=== PATIENT | female | born 1965 | race Caucasian/White ===

== ENCOUNTER 2017-02-20 08:21 | Inpatient (IN) | payer MEDICAID, OTHER ==
[~2017-02-20] VITALS: Ht 157.5 cm; Wt 62.1 kg
[~2017-02-20 08:21] MED LIST: DIVA500T69 PO; RISP3TAB44 PO; SERT50TA12 PO
[2017-02-20] MEDS ORDERED: PALI39DI IM (08:29)
[2017-02-20 09:06] LABS: BASOPHILS # (AUTO) 0.09 K/uL (0.00-0.20); BASOPHILS % (AUTO) 1.4 % (0.0-2.0); EOSINOPHILS # (AUTO) 0.12 K/uL (0.00-0.70); HEMATOCRIT 42.4 % (36-46); HEMOGLOBIN 14.7 g/dL (12.0-16.0); LYMPHOCYTES # (AUTO) 1.7 K/uL (1.0-4.8); LYMPHOCYTES % (AUTO) 28.1 % (22.0-44.0); MEAN CORPUSCULAR HEMOGLOBIN 32.3 pg (26.0-34.0); MEAN CORPUSCULAR HGB CONC 34.6 G/dL (31.0-37.0); MEAN CORPUSCULAR VOLUME 94 fL (80-100); MONOCYTES # (AUTO) 0.3 K/uL (0.1-1.0); MONOCYTES % (AUTO) 4.2 % (2.0-9.0); NEUTROPHILS # (AUTO) 3.9 K/uL (1.8-7.7); NEUTROPHILS % (AUTO) 64.3 % (40.0-70.0); RED BLOOD CELL COUNT(AUTO) 4.53 MIL/uL (4.00-5.20); WHITE BLOOD COUNT (AUTO) 6.1 K/uL (4.5-11.0)
[2017-02-20] MEDS ORDERED: DiphenhydrAMINE HCL 50 MG/ML VIAL IM ONE (09:30)
[2017-02-20] MEDS ORDERED: HALOPERIDOL LACTATE 5 MG/ML VIAL IM ONE (09:30)
[2017-02-20] MEDS ORDERED: LORazepam 2 MG/ML VIAL IM ONE (09:30)
[2017-02-20 09:55] LABS: PLATELET COUNT (AUTO) 227 K/uL (150-450)
[2017-02-20] MEDS ORDERED: ZOLPIDEM TARTRATE 10 MG TABLET PO PRN (10:15)
[2017-02-20] MEDS ORDERED: FluPHENAZine HCL 5 MG TABLET PO PRN (10:15)
[2017-02-20] MEDS ORDERED: SERT100T12 PO (10:46)
[2017-02-20 10:58] LABS: ANION GAP 9 mmol/L (8-16); CALCIUM, TOTAL 9.1 mg/dL (8.8-10.5); CARBON DIOXIDE 28 mmol/L (22-29); CHLORIDE 102 mmol/L (98-107); CREATININE 0.73 mg/dL (0.60-1.30); GLOMERULAR FILTR. RATE CALC > 60 mL/min (>60); POTASSIUM 3.9 mmol/L (3.5-5.1); SODIUM SERUM 139 mmol/L (136-145); UREA NITROGEN, BLOOD 11 mg/dL (7-18)
[2017-02-20 11:03] LABS: ALANINE AMINOTRANSFERASE 16 U/L (12-78); ALBUMIN 3.8 g/dL (3.4-5.0); ASPARTATE AMINOTRANSFERASE 21 U/L (15-37); BILIRUBIN,TOTAL 0.2 mg/dL (0.1-1.0)
[2017-02-20 16:12] VITALS: BP 146/94
[2017-02-20 16:31] LABS: GLUCOSE,POINT OF CARE 219 MG/DL (70-110)
[2017-02-20] MEDS: CloNIDine HCL 0.1 MG TABLET PO SCH (16:41)
[2017-02-20] MEDS: TRIHEXYPHENIDYL HCL 2 MG TABLET PO SCH (16:41)
[2017-02-20] MEDS ORDERED: INFLUENZA VIRUS VACCINE QVS 2017-18 (3YR+)/PF 60 MCG/0.5 ML SYRINGE IM ONE (16:45)
[2017-02-20] MEDS ORDERED: GLUCAGON,HUMAN RECOMBINANT 1 MG VIAL IM PRN (16:45)
[2017-02-20 16:47] VITALS: BP 146/94
[2017-02-20] MEDS: INSULIN ASPART 100 UNITS/ML SQ PRN (16:49)
[2017-02-20] MEDS: FluPHENAZine HCL 10 MG TABLET PO SCH (20:25)
[2017-02-21 06:53] LABS: GLUCOSE COMMENT 1 Received Meds; GLUCOSE,POINT OF CARE 147 MG/DL (70-110)
[2017-02-21] MEDS: INSULIN ASPART 100 UNITS/ML SQ PRN ×2 (06:53→16:35)
[2017-02-21] MEDS: LORazepam 2 MG TABLET PO PRN (06:55)
[2017-02-21 06:58] VITALS: BP 138/95
[2017-02-21] MEDS: NICOTINE 21 MG/24 HOUR PATCH TD SCH (09:17)
[2017-02-21] MEDS: SERTRALINE HCL 50 MG TABLET PO SCH (09:18)
[2017-02-21] MEDS: CloNIDine HCL 0.1 MG TABLET PO SCH ×2 (09:18→16:29)
[2017-02-21] MEDS: TRIHEXYPHENIDYL HCL 2 MG TABLET PO SCH ×3 (09:18→16:29)
[2017-02-21 09:30] VITALS: BP 136/86
[2017-02-21 16:27] LABS: GLUCOSE COMMENT 1 Received Meds; GLUCOSE,POINT OF CARE 181 MG/DL (70-110)
[2017-02-21 16:48] VITALS: BP 131/78
[2017-02-21] MEDS ORDERED: IBUPROFEN 600 MG TABLET PO PRN (17:30)
[2017-02-21] MEDS: FluPHENAZine HCL 10 MG TABLET PO SCH (20:26)
[2017-02-22 06:30] VITALS: BP 132/78
[2017-02-22 06:37] LABS: GLUCOSE,POINT OF CARE 131 MG/DL (70-110)
[2017-02-22 08:22] LABS: HEMOGLOBIN A1C 6.9 % (4.5-6.2)
[2017-02-22 08:23] LABS: CHOL/HDL RATIO 3.9 (3.9-5.7)
[2017-02-22 08:40] VITALS: BP 130/77
[2017-02-22] MEDS: SERTRALINE HCL 50 MG TABLET PO SCH (08:47)
[2017-02-22] MEDS: TRIHEXYPHENIDYL HCL 2 MG TABLET PO SCH ×3 (08:47→16:36)
[2017-02-22] MEDS: CloNIDine HCL 0.1 MG TABLET PO SCH ×2 (08:47→16:36)
[2017-02-22] MEDS: NICOTINE 21 MG/24 HOUR PATCH TD SCH (08:47)
[2017-02-22] MEDS: BACITRACIN 28.4 GM OINTMENT TP SCH ×2 (08:48→16:54)
[2017-02-22] MEDS: LORazepam 2 MG TABLET PO PRN (08:55)
[2017-02-22] MEDS: ACETAMINOPHEN 325 MG TABLET PO PRN (10:13)
[2017-02-22 16:28] VITALS: BP 139/72
[2017-02-22] MEDS: OMEPRAZOLE 20 MG CAPSULE PO SCH (16:36)
[2017-02-22] MEDS: INSULIN ASPART 100 UNITS/ML SQ PRN (16:40)
[2017-02-22 16:42] LABS: GLUCOSE COMMENT 1 Received Meds; GLUCOSE,POINT OF CARE 154 MG/DL (70-110)
[2017-02-22] MEDS: FluPHENAZine HCL 10 MG TABLET PO SCH (20:25)
[2017-02-23 06:22] LABS: GLUCOSE,POINT OF CARE 129 MG/DL (70-110)
[2017-02-23 06:30] VITALS: BP 122/79
[2017-02-23] MEDS: SERTRALINE HCL 50 MG TABLET PO SCH (08:22)
[2017-02-23] MEDS: OMEPRAZOLE 20 MG CAPSULE PO SCH ×2 (08:22→16:13)
[2017-02-23] MEDS: CloNIDine HCL 0.1 MG TABLET PO SCH ×2 (08:22→16:13)
[2017-02-23] MEDS: NICOTINE 21 MG/24 HOUR PATCH TD SCH (08:24)
[2017-02-23 08:27] VITALS: BP 113/75
[2017-02-23 09:35] VITALS: BP 126/82
[2017-02-23] MEDS: ACETAMINOPHEN 325 MG TABLET PO PRN (09:38)
[2017-02-23] MEDS: BACITRACIN 28.4 GM OINTMENT TP SCH ×2 (09:39→16:14)
[2017-02-23] MEDS: TRIHEXYPHENIDYL HCL 2 MG TABLET PO SCH ×3 (09:43→16:13)
[2017-02-23 16:17] LABS: GLUCOSE COMMENT 1 Received Meds; GLUCOSE,POINT OF CARE 148 MG/DL (70-110)
[2017-02-23 16:26] VITALS: BP 131/70
[2017-02-23] MEDS: INSULIN ASPART 100 UNITS/ML SQ PRN ×2 (16:36→20:38)
[2017-02-23] MEDS: LORazepam 2 MG TABLET PO PRN (17:39)
[2017-02-23] MEDS: FluPHENAZine HCL 10 MG TABLET PO SCH (20:20)
[2017-02-23 20:42] LABS: GLUCOSE COMMENT 1 Received Meds; GLUCOSE,POINT OF CARE 229 MG/DL (70-110)
[2017-02-24 06:32] VITALS: BP 128/67
[2017-02-24 06:38] LABS: GLUCOSE,POINT OF CARE 132 MG/DL (70-110)
[2017-02-24 08:30] VITALS: BP 108/62
[2017-02-24] MEDS: OMEPRAZOLE 20 MG CAPSULE PO SCH (08:36)
[2017-02-24] MEDS: SERTRALINE HCL 50 MG TABLET PO SCH (08:36)
[2017-02-24] MEDS: TRIHEXYPHENIDYL HCL 2 MG TABLET PO SCH ×2 (08:37→13:07)
[2017-02-24] MEDS: NICOTINE 21 MG/24 HOUR PATCH TD SCH (08:37)
[2017-02-24] MEDS: BACITRACIN 28.4 GM OINTMENT TP SCH (08:37)
[2017-02-24] MEDS: ACETAMINOPHEN 325 MG TABLET PO PRN (08:43)
[2017-02-24] MEDS: CloNIDine HCL 0.1 MG TABLET PO SCH (09:00)
[2017-02-24] MEDS ORDERED: TRIH2TAB3 PO (14:35)
[2017-02-24] MEDS ORDERED: FLUP10 PO (14:35)
[2017-02-24] MEDS ORDERED: OMEP20 PO (14:35)
[2017-02-24] MEDS ORDERED: CLON-570 PO (14:35)
[2017-02-24 15:57] LABS: GLUCOSE,POINT OF CARE 140 MG/DL (70-110)
[2017-02-26] MEDS ORDERED: RisperiDONE MICROSPHERES 50 MG/2 ML SYRINGE IM SCH (09:00)
== END 2017-02-24 16:30 | disposition home or self-care (01) | DRG 750 ==
LOC: EMS 08:27 → B3A 13:34
PROVIDERS: ADMIT Psychiatry & Neurology Child & Adolescent Psychiatry; ATTEND Psychiatry & Neurology Child & Adolescent Psychiatry
DX: F20.0 Paranoid schizophrenia (principal); Z93.0 Tracheostomy status; R45.851 Suicidal ideations; I10 Essential (primary) hypertension; E11.9 Type 2 diabetes mellitus without complications; Z28.21 Immunization not carried out because of patient refusal; Z88.8 Allergy status to other drugs, medicaments and biological substances; E78.00 Pure hypercholesterolemia, unspecified; E78.5 Hyperlipidemia, unspecified; J44.9 Chronic obstructive pulmonary disease, unspecified; K21.9 Gastro-esophageal reflux disease without esophagitis; Z86.73 Personal history of transient ischemic attack (TIA), and cerebral infarction without residual deficits; F17.210 Nicotine dependence, cigarettes, uncomplicated; F32.9 Major depressive disorder, single episode, unspecified; F41.9 Anxiety disorder, unspecified
CPT/HCPCS: 82306; 82962; 83036; 96372; 99285; G0480; J1200; J1630; J2060

== ENCOUNTER 2019-11-25 15:46 | Inpatient (IN) | payer MEDICAID, OTHER ==
[~2019-11-25] VITALS: Ht 165.1 cm; Wt 66.9 kg
[~2019-11-25 15:46] MED LIST changes: +CLON0.1T83 PO; -DIVA500T69 PO; +FLUP10 PO; +OMEP20 PO; -RISP3TAB44 PO; +SERT100T12 PO; -SERT50TA12 PO; +TRIH2TAB3 PO
[2019-11-25] MEDS ORDERED: DiphenhydrAMINE HCL 50 MG/ML VIAL IM ONE (16:30)
[2019-11-25] MEDS ORDERED: LORazepam 2 MG/ML VIAL IM ONE ×2 (16:30→17:00)
[2019-11-25] MEDS ORDERED: HALOPERIDOL LACTATE 5 MG/ML VIAL IM ONE (16:30)
[2019-11-25] MEDS ORDERED: ChlorproMAZINE HCL 50 MG/2 ML AMP IM ONE (17:00)
[2019-11-25 18:42] LABS: APPEARANCE,URINE CLOUDY (CLEAR); GLUCOSE, URINE (UA) NEGATIVE (NEGATIVE); KETONES,URINE TRACE mg/dL (NEGATIVE); LEUKOCYTE ESTERASE ,URINE SMALL (NEGATIVE); NITRATE,URINE NEGATIVE (NEGATIVE); OCCULT BLOOD,URINE NEGATIVE (NEGATIVE); PROTEIN,URINE TRACE (NEGATIVE)
[2019-11-25 18:43] LABS: BILIRUBIN,URINE PRELIM. POSITIVE (NEGATIVE)
[2019-11-25 18:48] LABS: AMPHET/METH SCREEN,URINE POSITIVE (NEGATIVE); BARBITURATE SCREEN, URINE NEGATIVE (NEGATIVE); BENZODIAZEPINES SCREEN,URINE NEGATIVE (NEGATIVE); CANNABINOID SCREEN,URINE NEGATIVE (NEGATIVE); COCAINE SCREEN,URINE NEGATIVE (NEGATIVE); METHADONE SCREEN, URINE NEGATIVE (NEGATIVE); OPIATE SCREEN,URINE NEGATIVE (NEGATIVE)
[2019-11-25 18:50] LABS: PHENCYCLIDINE SCREEN,URINE NEGATIVE (NEGATIVE)
[2019-11-25 18:54] LABS: BACTERIA,URINE Few /HPF (None Seen); RBC,URINE None Seen /HPF (0-2)
[2019-11-25 18:55] LABS: SQUAMOUS EPITHELIAL CELL,UR Moderate /LPF (None Seen)
[2019-11-25 18:56] LABS: YEAST,URINE Rare /HPF (None Seen)
[2019-11-25 19:14] LABS: BASOPHILS % (AUTO) 0.7 % (0.0-2.0); EOSINOPHILS % (AUTO) 2.8 % (1.0-6.0); HEMATOCRIT 38.4 % (36-46); HEMOGLOBIN 12.9 g/dL (12.0-16.0); LYMPHOCYTES # (AUTO) 1.2 K/uL (1.0-4.8); LYMPHOCYTES % (AUTO) 22.8 % (22.0-44.0); MEAN CORPUSCULAR HEMOGLOBIN 32.1 pg (26.0-34.0); MEAN CORPUSCULAR HGB CONC 33.7 G/dL (31.0-37.0); MEAN CORPUSCULAR VOLUME 95 fL (80-100); MONOCYTES # (AUTO) 0.4 K/uL (0.1-1.0); MONOCYTES % (AUTO) 7.6 % (2.0-9.0); NEUTROPHILS # (AUTO) 3.6 K/uL (1.8-7.7); NEUTROPHILS % (AUTO) 66.1 % (40.0-70.0); PLATELET COUNT (AUTO) 287 K/uL (150-450); RED BLOOD CELL COUNT(AUTO) 4.03 MIL/uL (4.00-5.20); RED CELL DISTRIBUTION WIDTH 13.6 % (11.5-14.5)
[2019-11-25 19:25] LABS: ANION GAP 10 mmol/L (8-16); CALCIUM, TOTAL 8.8 mg/dL (8.8-10.5); CARBON DIOXIDE 26 mmol/L (22-29); CHLORIDE 105 mmol/L (98-107); CREATININE 0.95 mg/dL (0.60-1.30); GLOMERULAR FILTR. RATE CALC > 60 mL/min (>60); GLUCOSE,RANDOM 90 mg/dL (70-110); POTASSIUM 3.2 mmol/L (3.5-5.1); SODIUM SERUM 141 mmol/L (136-145); UREA NITROGEN, BLOOD 19 mg/dL (7-18)
[2019-11-25 19:31] LABS: ALANINE AMINOTRANSFERASE 15 U/L (12-78); ALBUMIN 3.7 g/dL (3.4-5.0); ALKALINE PHOSPHATASE 111 U/L (46-116); ASPARTATE AMINOTRANSFERASE 15 U/L (15-37); BILIRUBIN,TOTAL 0.4 mg/dL (0.1-1.0); TOTAL PROTEIN, SERUM 6.8 g/dL (6.4-8.2)
[2019-11-25] MEDS ORDERED: POTASSIUM CHLORIDE 10% 40 MEQ/30 ML LIQUID UDCUP ONE (20:36)
[2019-11-25] MEDS ORDERED: POTASSIUM CHLORIDE 10% 40 MEQ/30 ML LIQUID UDCUP PO ONE (20:45)
[2019-11-25 20:59] VITALS: BP 147/97
[2019-11-26 07:51] LABS: CHOL/HDL RATIO 3.4 (3.9-5.7); CHOLESTEROL 181 mg/dL (131-200); HDL CHOLESTEROL 54 mg/dL (40-60); LDL CHOL (CALC.) 108 mg/dL (0-130); TRIGLYCERIDES 96 mg/dL (15-150); VALPROIC ACID < 3 mcg/mL (50-100)
[2019-11-26] MEDS: LORazepam 2 MG TABLET PO PRN ×2 (08:24→14:50)
[2019-11-26] MEDS: HALOPERIDOL 5 MG TABLET PO PRN ×2 (08:25→16:31)
[2019-11-26] MEDS ORDERED: CloNIDine HCL 0.1 MG TABLET PO PRN (08:30)
[2019-11-26] MEDS ORDERED: MAGNESIUM HYDROXIDE SUSPENSION 30 ML UDCUP PO PRN (08:30)
[2019-11-26] MEDS ORDERED: MAG HYDROX/AL HYDROX/SIMETH ES 30 ML SUSPENSION UDCUP PO PRN (08:30)
[2019-11-26] MEDS ORDERED: DOCUSATE SODIUM 100 MG CAPSULE PO PRN (08:30)
[2019-11-26] MEDS ORDERED: LOPERAMIDE HCL 2 MG CAPSULE PO PRN (08:30)
[2019-11-26] MEDS ORDERED: PETROLATUM,WHITE 28 GM JELLY TP PRN (08:30)
[2019-11-26] MEDS ORDERED: ONDANSETRON HCL 4 MG TABLET PO PRN (08:30)
[2019-11-26] MEDS ORDERED: ALBUTEROL SULFATE HFA 90 MCG/PUFF 8 GM INHALER IH PRN (08:30)
[2019-11-26] MEDS ORDERED: GuaiFENesin/D-METHORPHAN [SUGAR-FREE] 200-20MG/10 ML SYRUP UDCUP PO PRN (08:30)
[2019-11-26] MEDS: CloNIDine HCL 0.1 MG TABLET PO SCH ×2 (08:31→16:37)
[2019-11-26] MEDS: OMEPRAZOLE 20 MG CAPSULE PO SCH ×2 (08:31→16:37)
[2019-11-26] MEDS: SERTRALINE HCL 50 MG TABLET PO SCH (12:12)
[2019-11-26] MEDS: FluPHENAZine HCL 10 MG TABLET PO SCH ×3 (12:12→22:01)
[2019-11-26] MEDS: TRIHEXYPHENIDYL HCL 2 MG TABLET PO SCH ×2 (12:13→16:37)
[2019-11-26] MEDS: IBUPROFEN 400 MG TABLET PO PRN (14:50)
[2019-11-26] MEDS ORDERED: ChlorproMAZINE HCL 50 MG/2 ML AMP ONE (17:50)
[2019-11-26] MEDS ORDERED: LORazepam 2 MG/ML VIAL ONE (17:50)
[2019-11-26] MEDS ORDERED: DiphenhydrAMINE HCL 50 MG/ML VIAL ONE (17:50)
[2019-11-26] MEDS ORDERED: LORazepam 2 MG/ML VIAL IM ONE (18:00)
[2019-11-26] MEDS ORDERED: DiphenhydrAMINE HCL 50 MG/ML VIAL IM ONE (18:00)
[2019-11-26] MEDS ORDERED: ChlorproMAZINE HCL 50 MG/2 ML AMP IM ONE (18:00)
[2019-11-27 06:38] LABS: HEMOGLOBIN A1C 6.9 % (3.8-5.6)
[2019-11-27 06:45] LABS: CHOL/HDL RATIO 3.6 (3.9-5.7); POTASSIUM 4.1 mmol/L (3.5-5.1)
[2019-11-27] MEDS: OMEPRAZOLE 20 MG CAPSULE PO SCH ×2 (08:29→16:17)
[2019-11-27] MEDS: CloNIDine HCL 0.1 MG TABLET PO SCH ×2 (08:29→16:17)
[2019-11-27] MEDS: TRIHEXYPHENIDYL HCL 2 MG TABLET PO SCH ×3 (08:29→16:18)
[2019-11-27] MEDS: SERTRALINE HCL 50 MG TABLET PO SCH (08:29)
[2019-11-27] MEDS: FluPHENAZine HCL 10 MG TABLET PO SCH ×2 (08:30→20:11)
[2019-11-27 08:50] VITALS: BP 166/101
[2019-11-27] MEDS: LORazepam 2 MG TABLET PO PRN ×2 (10:02→14:03)
[2019-11-27] MEDS: HALOPERIDOL 5 MG TABLET PO PRN ×2 (10:02→14:03)
[2019-11-27] MEDS: ACETAMINOPHEN 325 MG TABLET PO PRN (12:06)
[2019-11-27 16:45] VITALS: BP 112/82
[2019-11-27] MEDS: ZOLPIDEM TARTRATE 10 MG TABLET PO PRN (20:11)
[2019-11-27] MEDS: CEPHALEXIN MONOHYDRATE 500 MG CAPSULE PO SCH (20:11)
[2019-11-28] MEDS: HALOPERIDOL 5 MG TABLET PO PRN ×2 (00:28→15:55)
[2019-11-28] MEDS: LORazepam 2 MG TABLET PO PRN ×2 (00:43→15:55)
[2019-11-28] MEDS: FluPHENAZine HCL 10 MG TABLET PO SCH ×2 (08:37→20:27)
[2019-11-28] MEDS: TRIHEXYPHENIDYL HCL 2 MG TABLET PO SCH ×3 (08:37→15:56)
[2019-11-28] MEDS: CloNIDine HCL 0.1 MG TABLET PO SCH ×2 (08:37→16:34)
[2019-11-28] MEDS: CEPHALEXIN MONOHYDRATE 500 MG CAPSULE PO SCH ×3 (08:37→15:55)
[2019-11-28] MEDS: SERTRALINE HCL 50 MG TABLET PO SCH (08:37)
[2019-11-28] MEDS: OMEPRAZOLE 20 MG CAPSULE PO SCH ×2 (08:37→15:55)
[2019-11-28] MEDS: ACETAMINOPHEN 325 MG TABLET PO PRN (14:57)
[2019-11-28 16:09] VITALS: BP 126/81
[2019-11-28] MEDS: ZOLPIDEM TARTRATE 10 MG TABLET PO PRN (22:39)
[2019-11-29 06:45] LABS: GLUCOMETER DEV NAME(LOC) 3E.C; GLUCOSE,POINT OF CARE 123 MG/DL (70-110)
[2019-11-29 08:00] VITALS: BP 130/70
[2019-11-29] MEDS: TRIHEXYPHENIDYL HCL 2 MG TABLET PO SCH ×3 (09:06→17:00)
[2019-11-29] MEDS: OMEPRAZOLE 20 MG CAPSULE PO SCH ×2 (09:06→17:00)
[2019-11-29] MEDS: SERTRALINE HCL 50 MG TABLET PO SCH (09:06)
[2019-11-29] MEDS: CEPHALEXIN MONOHYDRATE 500 MG CAPSULE PO SCH ×3 (09:06→17:00)
[2019-11-29] MEDS: FluPHENAZine HCL 10 MG TABLET PO SCH ×2 (09:06→20:50)
[2019-11-29] MEDS: CloNIDine HCL 0.1 MG TABLET PO SCH ×2 (09:06→17:00)
[2019-11-29 10:25] VITALS: BP 124/76
[2019-11-29] MEDS: ACETAMINOPHEN 325 MG TABLET PO PRN ×2 (10:25→19:14)
[2019-11-29] MEDS: LORazepam 2 MG TABLET PO PRN (14:37)
[2019-11-29] MEDS: HALOPERIDOL 5 MG TABLET PO PRN (14:37)
[2019-11-29 16:05] VITALS: BP 99/72
[2019-11-29 19:15] VITALS: BP 102/78
[2019-11-30 06:42] LABS: GLUCOMETER DEV NAME(LOC) 3E.C; GLUCOSE,POINT OF CARE 166 MG/DL (70-110)
[2019-11-30 08:23] VITALS: BP 127/86
[2019-11-30] MEDS: TRIHEXYPHENIDYL HCL 2 MG TABLET PO SCH ×3 (08:59→17:06)
[2019-11-30] MEDS: SERTRALINE HCL 50 MG TABLET PO SCH (09:00)
[2019-11-30] MEDS: CEPHALEXIN MONOHYDRATE 500 MG CAPSULE PO SCH ×3 (09:00→17:06)
[2019-11-30] MEDS: FluPHENAZine HCL 10 MG TABLET PO SCH ×2 (09:00→20:05)
[2019-11-30] MEDS: CloNIDine HCL 0.1 MG TABLET PO SCH ×2 (09:00→17:06)
[2019-11-30] MEDS: OMEPRAZOLE 20 MG CAPSULE PO SCH ×2 (09:01→17:06)
[2019-11-30] MEDS: ACETAMINOPHEN 325 MG TABLET PO PRN ×2 (10:29→18:41)
[2019-11-30] MEDS: HALOPERIDOL 5 MG TABLET PO PRN (15:38)
[2019-11-30] MEDS: LORazepam 2 MG TABLET PO PRN (15:38)
[2019-11-30 16:04] VITALS: BP 134/76
[2019-11-30 16:19] LABS: GLUCOMETER DEV NAME(LOC) 3E.C; GLUCOSE,POINT OF CARE 179 MG/DL (70-110)
[2019-12-01 06:40] LABS: GLUCOMETER DEV NAME(LOC) 3E.C; GLUCOSE,POINT OF CARE 134 MG/DL (70-110)
[2019-12-01] MEDS: CEPHALEXIN MONOHYDRATE 500 MG CAPSULE PO SCH ×3 (08:15→16:02)
[2019-12-01] MEDS: FluPHENAZine HCL 10 MG TABLET PO SCH ×2 (08:15→20:49)
[2019-12-01] MEDS: SERTRALINE HCL 50 MG TABLET PO SCH (08:15)
[2019-12-01] MEDS: CloNIDine HCL 0.1 MG TABLET PO SCH ×2 (08:15→17:44)
[2019-12-01] MEDS: TRIHEXYPHENIDYL HCL 2 MG TABLET PO SCH ×3 (08:15→16:02)
[2019-12-01] MEDS: OMEPRAZOLE 20 MG CAPSULE PO SCH ×2 (08:16→16:02)
[2019-12-01] MEDS: LORazepam 2 MG TABLET PO PRN (16:00)
[2019-12-02 06:41] LABS: GLUCOMETER DEV NAME(LOC) 3E.C; GLUCOSE,POINT OF CARE 160 MG/DL (70-110)
[2019-12-02] MEDS: MetFORMIN HCL 500 MG TABLET PO SCH (07:00)
[2019-12-02] MEDS: CEPHALEXIN MONOHYDRATE 500 MG CAPSULE PO SCH ×3 (08:38→16:19)
[2019-12-02] MEDS: FluPHENAZine HCL 10 MG TABLET PO SCH ×2 (08:38→20:03)
[2019-12-02] MEDS: SERTRALINE HCL 50 MG TABLET PO SCH (08:38)
[2019-12-02] MEDS: OMEPRAZOLE 20 MG CAPSULE PO SCH ×2 (08:39→16:19)
[2019-12-02] MEDS: TRIHEXYPHENIDYL HCL 2 MG TABLET PO SCH ×3 (08:39→16:19)
[2019-12-02] MEDS: CloNIDine HCL 0.1 MG TABLET PO SCH ×2 (08:40→16:19)
[2019-12-02] MEDS: LORazepam 2 MG TABLET PO PRN (12:40)
[2019-12-02] MEDS: HALOPERIDOL 5 MG TABLET PO PRN (12:40)
[2019-12-02 16:56] VITALS: BP 120/80
[2019-12-02] MEDS: ZOLPIDEM TARTRATE 10 MG TABLET PO PRN (20:03)
[2019-12-03 00:35] VITALS: BP 111/60
[2019-12-03] MEDS: ACETAMINOPHEN 325 MG TABLET PO PRN ×2 (00:40→13:12)
[2019-12-03] MEDS: LORazepam 2 MG TABLET PO PRN ×2 (00:40→14:56)
[2019-12-03 06:30] LABS: GLUCOMETER DEV NAME(LOC) 3E.C; GLUCOSE,POINT OF CARE 116 MG/DL (70-110)
[2019-12-03] MEDS: MetFORMIN HCL 500 MG TABLET PO SCH (07:00)
[2019-12-03] MEDS: FluPHENAZine HCL 10 MG TABLET PO SCH ×2 (08:09→21:10)
[2019-12-03] MEDS: CloNIDine HCL 0.1 MG TABLET PO SCH ×2 (08:09→16:50)
[2019-12-03] MEDS: SERTRALINE HCL 50 MG TABLET PO SCH (08:09)
[2019-12-03] MEDS: CEPHALEXIN MONOHYDRATE 500 MG CAPSULE PO SCH (08:09)
[2019-12-03] MEDS: TRIHEXYPHENIDYL HCL 2 MG TABLET PO SCH ×3 (08:09→16:50)
[2019-12-03] MEDS: OMEPRAZOLE 20 MG CAPSULE PO SCH ×2 (08:09→16:51)
[2019-12-03 13:12] VITALS: BP 118/72
[2019-12-03] MEDS: HALOPERIDOL 5 MG TABLET PO PRN (14:56)
[2019-12-03 16:00] VITALS: BP 149/61
[2019-12-03 16:15] LABS: GLUCOMETER DEV NAME(LOC) 3E.C; GLUCOSE,POINT OF CARE 175 MG/DL (70-110)
[2019-12-04 06:38] LABS: GLUCOMETER DEV NAME(LOC) 3E.C; GLUCOSE,POINT OF CARE 132 MG/DL (70-110)
[2019-12-04] MEDS: MetFORMIN HCL 500 MG TABLET PO SCH (07:02)
[2019-12-04] MEDS: TRIHEXYPHENIDYL HCL 2 MG TABLET PO SCH ×3 (08:12→15:58)
[2019-12-04] MEDS: FluPHENAZine HCL 10 MG TABLET PO SCH ×2 (08:12→20:17)
[2019-12-04] MEDS: CloNIDine HCL 0.1 MG TABLET PO SCH ×2 (08:12→18:09)
[2019-12-04] MEDS: SERTRALINE HCL 50 MG TABLET PO SCH (08:12)
[2019-12-04] MEDS: OMEPRAZOLE 20 MG CAPSULE PO SCH ×2 (08:12→15:58)
[2019-12-04 08:55] VITALS: BP 120/71
[2019-12-04] MEDS: ACETAMINOPHEN 325 MG TABLET PO PRN ×2 (13:21→21:21)
[2019-12-04 13:22] VITALS: BP 126/82
[2019-12-04] MEDS: LORazepam 2 MG TABLET PO PRN ×2 (15:14→19:18)
[2019-12-04] MEDS: HALOPERIDOL 5 MG TABLET PO PRN ×2 (15:14→20:17)
[2019-12-04 16:48] LABS: GLUCOMETER DEV NAME(LOC) 3E.C; GLUCOSE,POINT OF CARE 130 MG/DL (70-110)
[2019-12-04 18:07] VITALS: BP 128/69
[2019-12-05 06:40] LABS: GLUCOMETER DEV NAME(LOC) 3E.C; GLUCOSE,POINT OF CARE 124 MG/DL (70-110)
[2019-12-05] MEDS: MetFORMIN HCL 500 MG TABLET PO SCH (06:59)
[2019-12-05] MEDS: OMEPRAZOLE 20 MG CAPSULE PO SCH ×2 (08:54→16:04)
[2019-12-05] MEDS: SERTRALINE HCL 50 MG TABLET PO SCH (08:54)
[2019-12-05] MEDS: TRIHEXYPHENIDYL HCL 2 MG TABLET PO SCH ×3 (08:55→16:04)
[2019-12-05] MEDS: CloNIDine HCL 0.1 MG TABLET PO SCH ×2 (08:55→16:04)
[2019-12-05] MEDS: FluPHENAZine HCL 10 MG TABLET PO SCH ×2 (08:55→20:02)
[2019-12-05] MEDS: ACETAMINOPHEN 325 MG TABLET PO PRN (14:35)
[2019-12-05 17:10] LABS: GLUCOMETER DEV NAME(LOC) 3E.C; GLUCOSE,POINT OF CARE 255 MG/DL (70-110)
[2019-12-05] MEDS: LORazepam 2 MG TABLET PO PRN (19:22)
[2019-12-05] MEDS: NICOTINE 14 MG/24 HOUR PATCH TD PRN (20:04)
[2019-12-06 06:39] LABS: GLUCOMETER DEV NAME(LOC) 3E.C; GLUCOSE,POINT OF CARE 132 MG/DL (70-110)
[2019-12-06] MEDS: MetFORMIN HCL 500 MG TABLET PO SCH (07:02)
[2019-12-06] MEDS: SERTRALINE HCL 50 MG TABLET PO SCH (08:20)
[2019-12-06] MEDS: CloNIDine HCL 0.1 MG TABLET PO SCH ×2 (08:20→16:48)
[2019-12-06] MEDS: OMEPRAZOLE 20 MG CAPSULE PO SCH ×2 (08:20→16:47)
[2019-12-06] MEDS: FluPHENAZine HCL 10 MG TABLET PO SCH ×2 (08:20→20:30)
[2019-12-06 08:28] VITALS: BP 120/69
[2019-12-06] MEDS: TRIHEXYPHENIDYL HCL 2 MG TABLET PO SCH ×3 (09:04→16:47)
[2019-12-06 11:55] VITALS: BP 118/65
[2019-12-06] MEDS: ACETAMINOPHEN 325 MG TABLET PO PRN (11:58)
[2019-12-06] MEDS ORDERED: DiphenhydrAMINE HCL 50 MG/ML VIAL ONE (12:41)
[2019-12-06] MEDS ORDERED: HALOPERIDOL LACTATE 5 MG/ML VIAL ONE (12:41)
[2019-12-06] MEDS ORDERED: LORazepam 2 MG/ML VIAL ONE (12:41)
[2019-12-06] MEDS ORDERED: DiphenhydrAMINE HCL 50 MG/ML VIAL IM ONE ×2 (12:45→21:00)
[2019-12-06] MEDS ORDERED: HALOPERIDOL LACTATE 5 MG/ML VIAL IM ONE ×2 (12:45→21:00)
[2019-12-06] MEDS ORDERED: LORazepam 2 MG/ML VIAL IM ONE ×2 (12:45→21:00)
[2019-12-06 16:17] VITALS: BP 107/61
[2019-12-06 16:22] LABS: GLUCOMETER DEV NAME(LOC) 3E.C; GLUCOSE,POINT OF CARE 177 MG/DL (70-110)
[2019-12-06] MEDS: HALOPERIDOL 5 MG TABLET PO PRN (20:30)
[2019-12-07 06:16] LABS: GLUCOMETER DEV NAME(LOC) 3E.C; GLUCOSE,POINT OF CARE 168 MG/DL (70-110)
[2019-12-07] MEDS: MetFORMIN HCL 500 MG TABLET PO SCH (07:00)
[2019-12-07 08:06] VITALS: BP 148/82
[2019-12-07] MEDS: TRIHEXYPHENIDYL HCL 2 MG TABLET PO SCH ×3 (08:14→17:21)
[2019-12-07] MEDS: FluPHENAZine HCL 10 MG TABLET PO SCH ×2 (08:14→20:28)
[2019-12-07] MEDS: CloNIDine HCL 0.1 MG TABLET PO SCH ×2 (08:14→17:00)
[2019-12-07] MEDS: SERTRALINE HCL 50 MG TABLET PO SCH (08:14)
[2019-12-07] MEDS: OMEPRAZOLE 20 MG CAPSULE PO SCH ×2 (08:14→17:21)
[2019-12-07 12:43] LABS: APPEARANCE,URINE CLEAR (CLEAR); BILIRUBIN,URINE NEGATIVE (NEGATIVE); GLUCOSE, URINE (UA) NEGATIVE (NEGATIVE); KETONES,URINE NEGATIVE (NEGATIVE); LEUKOCYTE ESTERASE ,URINE NEGATIVE (NEGATIVE); NITRATE,URINE NEGATIVE (NEGATIVE); OCCULT BLOOD,URINE NEGATIVE (NEGATIVE); PROTEIN,URINE NEGATIVE (NEGATIVE); UROBILINOGEN,URINE 0.2 mg/dL (<=1.0)
[2019-12-07 12:47] LABS: BACTERIA,URINE None Seen /HPF (None Seen); RBC,URINE None Seen /HPF (0-2); WBC,URINE None Seen /HPF (0-5)
[2019-12-07 17:19] VITALS: BP 90/57
[2019-12-07 17:27] LABS: GLUCOMETER DEV NAME(LOC) 3E.C; GLUCOSE,POINT OF CARE 146 MG/DL (70-110)
[2019-12-07 22:07] VITALS: BP 106/57
[2019-12-07] MEDS: ACETAMINOPHEN 325 MG TABLET PO PRN (22:12)
[2019-12-08] MEDS: LORazepam 2 MG TABLET PO PRN (03:30)
[2019-12-08 06:20] LABS: GLUCOMETER DEV NAME(LOC) 3E.C; GLUCOSE,POINT OF CARE 118 MG/DL (70-110)
[2019-12-08] MEDS: MetFORMIN HCL 500 MG TABLET PO SCH (06:54)
[2019-12-08] MEDS: CloNIDine HCL 0.1 MG TABLET PO SCH ×2 (08:23→16:35)
[2019-12-08] MEDS: OMEPRAZOLE 20 MG CAPSULE PO SCH ×2 (08:23→16:35)
[2019-12-08] MEDS: TRIHEXYPHENIDYL HCL 2 MG TABLET PO SCH ×3 (08:23→16:35)
[2019-12-08] MEDS: FluPHENAZine HCL 10 MG TABLET PO SCH ×2 (08:23→20:03)
[2019-12-08] MEDS: SERTRALINE HCL 50 MG TABLET PO SCH (08:23)
[2019-12-08] MEDS ORDERED: RisperiDONE MICROSPHERES 50 MG/2 ML SYRINGE IM SCH (09:00)
[2019-12-08 10:47] VITALS: BP 137/75
[2019-12-08] MEDS: NICOTINE 14 MG/24 HOUR PATCH TD PRN (12:28)
[2019-12-08 16:19] LABS: GLUCOMETER DEV NAME(LOC) 3E.C; GLUCOSE,POINT OF CARE 134 MG/DL (70-110)
[2019-12-08] MEDS: ZOLPIDEM TARTRATE 10 MG TABLET PO PRN (20:03)
[2019-12-08 23:50] VITALS: BP 103/71
[2019-12-08] MEDS: ACETAMINOPHEN 325 MG TABLET PO PRN (23:53)
[2019-12-09] MEDS: LORazepam 2 MG TABLET PO PRN ×2 (04:59→15:45)
[2019-12-09 06:14] LABS: GLUCOMETER DEV NAME(LOC) 3E.C; GLUCOSE,POINT OF CARE 158 MG/DL (70-110)
[2019-12-09] MEDS: MetFORMIN HCL 500 MG TABLET PO SCH (07:04)
[2019-12-09] MEDS: HALOPERIDOL 5 MG TABLET PO PRN ×2 (09:26→19:45)
[2019-12-09] MEDS: SERTRALINE HCL 50 MG TABLET PO SCH (09:27)
[2019-12-09] MEDS: FluPHENAZine HCL 10 MG TABLET PO SCH ×2 (09:27→20:37)
[2019-12-09] MEDS: OMEPRAZOLE 20 MG CAPSULE PO SCH ×2 (09:27→16:07)
[2019-12-09] MEDS: TRIHEXYPHENIDYL HCL 2 MG TABLET PO SCH ×3 (09:27→16:06)
[2019-12-09] MEDS: CloNIDine HCL 0.1 MG TABLET PO SCH ×2 (09:27→16:07)
[2019-12-09] MEDS: ACETAMINOPHEN 325 MG TABLET PO PRN (15:46)
[2019-12-09 16:16] LABS: GLUCOMETER DEV NAME(LOC) 3E.C; GLUCOSE,POINT OF CARE 201 MG/DL (70-110)
[2019-12-09 16:20] VITALS: BP 113/68
[2019-12-10 06:26] LABS: GLUCOMETER DEV NAME(LOC) 3E.C; GLUCOSE,POINT OF CARE 117 MG/DL (70-110)
[2019-12-10] MEDS: MetFORMIN HCL 500 MG TABLET PO SCH (07:03)
[2019-12-10 08:00] VITALS: BP 134/62
[2019-12-10] MEDS: TRIHEXYPHENIDYL HCL 2 MG TABLET PO SCH ×3 (08:16→17:04)
[2019-12-10] MEDS: FluPHENAZine HCL 10 MG TABLET PO SCH ×2 (08:16→20:02)
[2019-12-10] MEDS: SERTRALINE HCL 50 MG TABLET PO SCH (08:16)
[2019-12-10] MEDS: CloNIDine HCL 0.1 MG TABLET PO SCH ×2 (08:16→17:00)
[2019-12-10] MEDS: OMEPRAZOLE 20 MG CAPSULE PO SCH ×2 (08:16→17:04)
[2019-12-10 17:04] VITALS: BP 94/59
[2019-12-10 17:07] LABS: GLUCOMETER DEV NAME(LOC) 3E.C; GLUCOSE,POINT OF CARE 165 MG/DL (70-110)
[2019-12-10] MEDS: ACETAMINOPHEN 325 MG TABLET PO PRN (17:14)
[2019-12-10] MEDS: HALOPERIDOL 5 MG TABLET PO PRN (20:02)
[2019-12-11] MEDS: ZOLPIDEM TARTRATE 10 MG TABLET PO PRN (02:14)
[2019-12-11] MEDS: ACETAMINOPHEN 325 MG TABLET PO PRN ×3 (02:15→22:44)
[2019-12-11] MEDS: MetFORMIN HCL 500 MG TABLET PO SCH (07:02)
[2019-12-11] MEDS: CloNIDine HCL 0.1 MG TABLET PO SCH ×2 (08:29→16:35)
[2019-12-11] MEDS: FluPHENAZine HCL 10 MG TABLET PO SCH ×2 (08:29→20:11)
[2019-12-11] MEDS: OMEPRAZOLE 20 MG CAPSULE PO SCH ×2 (08:29→16:34)
[2019-12-11] MEDS: TRIHEXYPHENIDYL HCL 2 MG TABLET PO SCH ×3 (08:29→16:34)
[2019-12-11] MEDS: SERTRALINE HCL 50 MG TABLET PO SCH (08:29)
[2019-12-11 09:33] VITALS: BP 129/91
[2019-12-11] MEDS: HALOPERIDOL 5 MG TABLET PO PRN ×3 (13:25→20:52)
[2019-12-11 16:29] LABS: GLUCOMETER DEV NAME(LOC) 3E.C; GLUCOSE,POINT OF CARE 128 MG/DL (70-110)
[2019-12-11 16:35] VITALS: BP 131/77
[2019-12-11 22:45] VITALS: BP 126/80
[2019-12-12] MEDS: ZOLPIDEM TARTRATE 10 MG TABLET PO PRN ×2 (00:16→21:44)
[2019-12-12] MEDS: LORazepam 2 MG TABLET PO PRN ×2 (00:16→16:13)
[2019-12-12 06:26] LABS: GLUCOMETER DEV NAME(LOC) 3E.C; GLUCOSE,POINT OF CARE 144 MG/DL (70-110)
[2019-12-12] MEDS: MetFORMIN HCL 500 MG TABLET PO SCH (06:42)
[2019-12-12] MEDS: FluPHENAZine HCL 10 MG TABLET PO SCH ×2 (08:11→21:44)
[2019-12-12] MEDS: CloNIDine HCL 0.1 MG TABLET PO SCH ×2 (08:11→16:04)
[2019-12-12] MEDS: OMEPRAZOLE 20 MG CAPSULE PO SCH ×2 (08:11→16:04)
[2019-12-12] MEDS: TRIHEXYPHENIDYL HCL 2 MG TABLET PO SCH ×3 (08:11→16:04)
[2019-12-12] MEDS: SERTRALINE HCL 50 MG TABLET PO SCH (08:12)
[2019-12-12 09:23] VITALS: BP 118/76
[2019-12-12] MEDS: NICOTINE 14 MG/24 HOUR PATCH TD PRN (10:47)
[2019-12-12] MEDS: ACETAMINOPHEN 325 MG TABLET PO PRN (13:55)
[2019-12-12 13:56] VITALS: BP 122/84
[2019-12-12] MEDS: HALOPERIDOL 5 MG TABLET PO PRN (16:04)
[2019-12-12 16:10] VITALS: BP 119/68
[2019-12-12 16:14] LABS: GLUCOMETER DEV NAME(LOC) 3E.C; GLUCOSE,POINT OF CARE 193 MG/DL (70-110)
[2019-12-12] MEDS: IBUPROFEN 400 MG TABLET PO PRN (19:29)
[2019-12-12 19:30] VITALS: BP 115/78
[2019-12-13 06:51] LABS: GLUCOMETER DEV NAME(LOC) 3E.C; GLUCOSE,POINT OF CARE 123 MG/DL (70-110)
[2019-12-13] MEDS: MetFORMIN HCL 500 MG TABLET PO SCH (07:02)
[2019-12-13] MEDS: TRIHEXYPHENIDYL HCL 2 MG TABLET PO SCH ×3 (07:58→16:04)
[2019-12-13] MEDS: OMEPRAZOLE 20 MG CAPSULE PO SCH ×2 (07:59→16:04)
[2019-12-13] MEDS: SERTRALINE HCL 50 MG TABLET PO SCH (07:59)
[2019-12-13] MEDS: CloNIDine HCL 0.1 MG TABLET PO SCH ×2 (07:59→16:04)
[2019-12-13] MEDS: FluPHENAZine HCL 10 MG TABLET PO SCH (07:59)
[2019-12-13] MEDS: ACETAMINOPHEN 325 MG TABLET PO PRN (12:34)
[2019-12-13] MEDS: LORazepam 2 MG TABLET PO PRN (14:31)
[2019-12-13] MEDS ORDERED: RISPC50 IM (14:53)
[2019-12-13] MEDS ORDERED: METF-960 PO (14:55)
[2019-12-13 16:00] VITALS: BP 108/67
[2019-12-13 16:14] LABS: GLUCOMETER DEV NAME(LOC) 3E.C; GLUCOSE,POINT OF CARE 115 MG/DL (70-110)
== END 2019-12-13 16:30 | disposition home or self-care (01) | DRG 885 ==
LOC: EMS 15:46 → 3EC 17:03
PROVIDERS: ADMIT Psychiatry & Neurology Child & Adolescent Psychiatry; ATTEND Psychiatry & Neurology Child & Adolescent Psychiatry
DX: F20.0 Paranoid schizophrenia (principal); R45.851 Suicidal ideations; E11.9 Type 2 diabetes mellitus without complications; F32.9 Major depressive disorder, single episode, unspecified; E78.00 Pure hypercholesterolemia, unspecified; E78.5 Hyperlipidemia, unspecified; E87.6 Hypokalemia; F15.10 Other stimulant abuse, uncomplicated; I10 Essential (primary) hypertension; J44.9 Chronic obstructive pulmonary disease, unspecified; K21.9 Gastro-esophageal reflux disease without esophagitis; F17.210 Nicotine dependence, cigarettes, uncomplicated; F41.9 Anxiety disorder, unspecified; K59.00 Constipation, unspecified; Z59.0 Homelessness; Z86.73 Personal history of transient ischemic attack (TIA), and cerebral infarction without residual deficits; Z78.1 Physical restraint status; Z79.01 Long term (current) use of anticoagulants; Z86.711 Personal history of pulmonary embolism; Z88.8 Allergy status to other drugs, medicaments and biological substances; Z98.51 Tubal ligation status; Z79.899 Other long term (current) drug therapy
CPT/HCPCS: 83036; 84132; 99291; G0480; J1200; J1630; J2060; J2794; J3230